=== PATIENT | male | born 1995 | race Two or more races ===

== ENCOUNTER 2024-07-19 10:20 | Inpatient (IN) | payer OTHER ==
[2024-07-19 10:43] VITALS: BMI 32.2
[2024-07-19] MEDS ORDERED: P-EPHED 60MG/TRIPROLIDI 2.5MG TABLET PO PRN (11:04)
[2024-07-19] MEDS ORDERED: POLYETHYLENE GLYCOL (HEALTHYLAX) 3350 17 GM PACKET PO PRN (11:04)
[2024-07-19] MEDS ORDERED: NICOTINE POLACRILEX 2 MG LOZENGE BC PRN (11:04)
[2024-07-19] MEDS ORDERED: DICYCLOMINE HCL 10 MG CAPSULE PO PRN (11:04)
[2024-07-19] MEDS ORDERED: IBUPROFEN 400 MG TABLET (FP) PO PRN (11:04)
[2024-07-19] MEDS ORDERED: ACETAMINOPHEN 325 MG TABLET (FP) PO PRN (11:04)
[2024-07-19] MEDS ORDERED: guaiFENesin 600 MG TABLET.ER (FP) PO PRN (11:04)
[2024-07-19] MEDS ORDERED: ONDANSETRON *ODT* 4 MG TABLET SL PRN (11:04)
[2024-07-19] MEDS ORDERED: MAG HYDROX/AL HYDROX/SIMETH 30 ML UNIT-DOSE CUP PO PRN (11:04)
[2024-07-19] MEDS ORDERED: BENZOCAINE/MENTHOL (CHLORASEPTIC ) LOZENGE MM PRN (11:04)
[2024-07-19] MEDS ORDERED: BENZONATATE 200 MG CAPSULE PO PRN (11:04)
[2024-07-19] MEDS ORDERED: NICOTINE POLACRILEX 2 MG GUM BUC PRN (11:04)
[2024-07-19] MEDS ORDERED: MAGNESIUM HYDROX 2400MG/30ML ORAL SUSPENSION 30 ML CUP PO PRN (11:04)
[2024-07-19] MEDS ORDERED: IBUPROFEN 600 MG TABLET (FP) PO PRN (11:04)
[2024-07-19] MEDS: METHOCARBAMOL 500 MG TABLET PO PRN (12:33)
[2024-07-19] MEDS: hydrOXYzine PAMOATE 25 MG CAPSULE (FP) PO PRN (12:33)
[2024-07-19] MEDS: OLANZapine 5 MG TABLET PO ONE (16:21)
[2024-07-19] MEDS ORDERED: OLANZapine 5 MG TABLET PO SCH (22:00)
[2024-07-19] MEDS ORDERED: traZODone HCL 50 MG TABLET (FP) PO SCH (22:00)
[2024-07-19] MEDS: THIAMINE 100 MG TABLET PO SCH (22:12)
[2024-07-19] MEDS: MELATONIN 5 MG TABLETS PO SCH (22:12)
[2024-07-19] MEDS: OLANZapine 5 MG TABLET PO SCH (22:13)
[2024-07-19] MEDS: traZODone HCL 100 MG TABLET (FP) PO SCH (22:13)
[2024-07-20] MEDS: diazePAM 5 MG TABLET PO SCH (10:12)
[2024-07-20] MEDS: PRENATAL VITAMINS W/ FOLIC ACID TABLET (FP) PO SCH (10:12)
[2024-07-20 11:53] LABS: HEMATOCRIT 40.3 % (35.4-49); HEMOGLOBIN 12.8 GM/dL (11.7-16.9); MCH 24.1 pg (25.7-33.7); MCHC 31.9 g/dl (32.0-35.9); MEAN CELL VOLUME 75.8 fl (80-96); MEAN PLT VOLUME 9.2 fl (7.5-11.1); PLATELET COUNT 154 10^3/uL (134-434); RBC 5.32 M/mm3 (4.00-5.60); RDW 14.6 % (11.9-15.9); WHITE BLOOD COUNT 3.9 K/mm3 (4.0-10.0)
[2024-07-20 12:04] LABS: POTASSIUM 4.5 mmol/L (3.5-5.1)
[2024-07-20 12:15] LABS: CALCIUM 8.8 mg/dL (8.5-10.1)
[2024-07-20 12:16] LABS: BLOOD UREA NITROGEN 14.9 mg/dL (7-18)
[2024-07-20 12:17] LABS: ALBUMIN 3.4 g/dl (3.4-5.0)
[2024-07-20 12:19] LABS: CREATININE 1.1 mg/dL (0.55-1.3)
[2024-07-20 12:21] LABS: BILIRUBIN,TOTAL 0.4 mg/dL (0.2-1); TOT PROT 6.3 g/dl (6.4-8.2)
[2024-07-20] MEDS: BISMUTH SUBSALICYLATE 524 MG/30 ML PO PRN (17:05)
[2024-07-20] MEDS: OLANZapine 10 MG TABLET PO SCH (22:25)
[2024-07-22] MEDS: diazePAM 5 MG TABLET PO SCH (05:10)
[2024-07-22] MEDS: LOPERAMIDE HCL 2 MG CAPSULE PO PRN (15:57)
[2024-07-22] MEDS: diazePAM 5 MG TABLET PO PRN (17:56)
[2024-07-23] MEDS: diazePAM 5 MG TABLET PO SCH (05:15)
[2024-07-24] MEDS: diazePAM 5 MG TABLET PO ONE (05:42)
[2024-07-25 06:09] VITALS: RESP 16
[2024-07-25 12:22] VITALS: BP 132/79; PULSE 78; TEMP 97.8
== END 2024-07-25 12:37 | disposition other institution (70) | DRG 774 ==
LOC: YASAS 10:20 → Y3N 11:26
PROVIDERS: ADMIT Allergy & Immunology; ATTEND Surgery
PROC: HZ2ZZZZ Detoxification Services for Substance Abuse Treatment (ICD-10-PCS; principal; 2024-07-19)
DX: F10.230 Alcohol dependence with withdrawal, uncomplicated (principal); F14.20 Cocaine dependence, uncomplicated; F12.20 Cannabis dependence, uncomplicated; F17.210 Nicotine dependence, cigarettes, uncomplicated; F19.282 Other psychoactive substance dependence with psychoactive substance-induced sleep disorder; F20.9 Schizophrenia, unspecified; I10 Essential (primary) hypertension; Z59.02 Unsheltered homelessness; Z88.8 Allergy status to other drugs, medicaments and biological substances
CPT/HCPCS: 36415; 80053; 80305; 80307; 85027; 86780; 87811; 93005; 93010

== ENCOUNTER 2024-07-25 13:07 | Inpatient (IN) | payer OTHER ==
[2024-07-25] MEDS ORDERED: IBUPROFEN 600 MG TABLET (FP) PO PRN (17:02)
[2024-07-25] MEDS ORDERED: BENZONATATE 200 MG CAPSULE PO PRN (17:02)
[2024-07-25] MEDS ORDERED: MAGNESIUM HYDROX 2400MG/30ML ORAL SUSPENSION 30 ML CUP PO PRN (17:02)
[2024-07-25] MEDS ORDERED: guaiFENesin 600 MG TABLET.ER (FP) PO PRN (17:02)
[2024-07-25] MEDS ORDERED: POLYETHYLENE GLYCOL (HEALTHYLAX) 3350 17 GM PACKET PO PRN (17:02)
[2024-07-25] MEDS ORDERED: NALOXONE HCL 0.4 MG/ML VIAL IVPUSH PRN (17:02)
[2024-07-25] MEDS ORDERED: IBUPROFEN 400 MG TABLET (FP) PO PRN (17:02)
[2024-07-25] MEDS ORDERED: NALOXONE (NARCAN) HCL 4 MG/0.1 ML SPRAY NS PRN (17:02)
[2024-07-25] MEDS ORDERED: BENZOCAINE/MENTHOL (CHLORASEPTIC ) LOZENGE MM PRN (17:02)
[2024-07-25] MEDS ORDERED: MAG HYDROX/AL HYDROX/SIMETH 30 ML UNIT-DOSE CUP PO PRN (17:02)
[2024-07-25] MEDS: MELATONIN 5 MG TABLETS PO SCH (21:07)
[2024-07-25] MEDS: hydrOXYzine PAMOATE 25 MG CAPSULE (FP) PO PRN (21:07)
[2024-07-25] MEDS: THIAMINE 100 MG TABLET PO SCH (21:07)
[2024-07-25] MEDS: METHOCARBAMOL 500 MG TABLET PO PRN (21:08)
[2024-07-26] MEDS: PRENATAL VITAMINS W/ FOLIC ACID TABLET (FP) PO SCH (11:13)
[2024-07-26] MEDS: OLANZapine 10 MG TABLET PO ONE (12:03)
[2024-07-26] MEDS: traZODone HCL 100 MG TABLET (FP) PO SCH (21:18)
[2024-07-27] MEDS: OLANZapine 10 MG TABLET PO SCH (21:29)
[2024-07-29] MEDS: LOPERAMIDE HCL 2 MG CAPSULE PO PRN (09:08)
[2024-07-29] MEDS: ACETAMINOPHEN 325 MG TABLET (FP) PO PRN (09:08)
[2024-07-31 07:04] VITALS: BP 112/82; PULSE 82; RESP 17; TEMP 96
== END 2024-07-31 14:05 | disposition home or self-care (01) | DRG 772 ==
LOC: YASAS 13:07 → Y5N 13:09 → Y3E 07-29 23:29
PROVIDERS: ADMIT Psychiatry & Neurology Pain Medicine; ATTEND Psychiatry & Neurology Pain Medicine
PROC: HZ42ZZZ Group Counseling for Substance Abuse Treatment, Cognitive-Behavioral (ICD-10-PCS; principal; 2024-07-25)
DX: F10.20 Alcohol dependence, uncomplicated (principal); F14.20 Cocaine dependence, uncomplicated; F12.20 Cannabis dependence, uncomplicated; F17.210 Nicotine dependence, cigarettes, uncomplicated; F19.282 Other psychoactive substance dependence with psychoactive substance-induced sleep disorder; F31.9 Bipolar disorder, unspecified; F20.9 Schizophrenia, unspecified; Z59.00 Homelessness unspecified; Z88.8 Allergy status to other drugs, medicaments and biological substances
CPT/HCPCS: 36415; 86803